=== PATIENT | female | born 1950 | race African-American/Black ===

== ENCOUNTER → 2017-01-21 | Outpatient (CLI) | payer OTHER ==
[~2017-01-21] MED LIST: AMIO200T PO; ATOR40TA28 PO; CHOL400C8 PO; DOCU250C91 PO; FOLI1 PO; FURO40I PO; ISOS60TA4 PO; METO100XL PO; OMEP20TA25 PO; POTA8TAB4 PO
== END | disposition home or self-care (01) ==
LOC: RADPV 09:40
PROVIDERS: ATTEND Internal Medicine Cardiovascular Disease
DX: R13.10 Dysphagia, unspecified (principal)
CPT/HCPCS: 74230; 92611

== ENCOUNTER 2017-09-07 08:06 | Emergency (ER) | payer OTHER ==
[~2017-09-07] VITALS: Ht 167.6 cm; Wt 104.5 kg
[2017-09-07] MEDS ORDERED: DIGO-44 PO (08:36)
[2017-09-07] MEDS ORDERED: ASPI-1182 PO (08:36)
[2017-09-07] MEDS ORDERED: RANO500T3 PO (08:36)
[2017-09-07] MEDS ORDERED: SPIR25 PO (08:36)
[2017-09-07 09:05] LABS: BASOPHILS % (AUTO) 0.6 % (0.0-2.0); EOSINOPHILS % (AUTO) 0.2 % (1.0-6.0); HEMATOCRIT 33.4 % (36-46); HEMOGLOBIN 10.9 g/dL (12.0-16.0); LYMPHOCYTES # (AUTO) 0.5 K/uL (1.0-4.8); LYMPHOCYTES % (AUTO) 5.3 % (22.0-44.0); MEAN CORPUSCULAR HGB CONC 32.7 G/dL (31.0-37.0); MEAN CORPUSCULAR VOLUME 89 fL (80-100); MONOCYTES # (AUTO) 0.6 K/uL (0.1-1.0); NEUTROPHILS # (AUTO) 8.4 K/uL (1.8-7.7); PLATELET COUNT (AUTO) 271 K/uL (150-450); RED BLOOD CELL COUNT(AUTO) 3.77 MIL/uL (4.00-5.20)
[2017-09-07 09:11] LABS: NEUTROPHILS % (AUTO) 87.9 % (40.0-70.0)
[2017-09-07 09:16] LABS: ANION GAP 7 mmol/L (8-16); CARBON DIOXIDE 28 mmol/L (22-29); CHLORIDE 103 mmol/L (98-107); CREATININE 1.05 mg/dL (0.60-1.30); GLOMERULAR FILTR. RATE CALC > 60 mL/min (>60); GLUCOSE,RANDOM 120 mg/dL (70-110); POTASSIUM 4.1 mmol/L (3.5-5.1); SODIUM SERUM 138 mmol/L (136-145); UREA NITROGEN, BLOOD 15 mg/dL (7-18)
[2017-09-07 09:22] LABS: ALANINE AMINOTRANSFERASE 27 U/L (12-78); ALBUMIN 3.7 g/dL (3.4-5.0); ALKALINE PHOSPHATASE 87 U/L (46-116); ASPARTATE AMINOTRANSFERASE 14 U/L (15-37); BILIRUBIN,TOTAL 0.4 mg/dL (0.1-1.0)
[2017-09-07] MEDS ORDERED: IPRATROPIUM BROMIDE 0.5 MG/2.5 ML NEB SOLUTION NEB ONE (10:00)
[2017-09-07] MEDS ORDERED: ALBUTEROL SULFATE 2.5 MG/0.5 ML NEB SOLUTION NEB ONE (10:00)
[2017-09-07 10:01] LABS: B-TYPE NATRIURETIC PEPTIDE 23 pg/mL (0-100)
[2017-09-07] MEDS ORDERED: DIGOXIN 125 MCG TABLET PO ONE ×2 (10:45→11:30)
[2017-09-07] MEDS ORDERED: ISOSORBIDE MONONITRATE 60 MG ER TABLET PO ONE (10:45)
[2017-09-07] MEDS ORDERED: METOPROLOL SUCCINATE 50 MG ER TABLET PO ONE (10:45)
[2017-09-07 12:03] VITALS: BP 130/67
== END 2017-09-07 12:28 | disposition home or self-care (01) ==
LOC: EMS 08:08
DX: J20.9 Acute bronchitis, unspecified (principal); I10 Essential (primary) hypertension; E78.00 Pure hypercholesterolemia, unspecified; K80.20 Calculus of gallbladder without cholecystitis without obstruction; Z79.899 Other long term (current) drug therapy; Z79.82 Long term (current) use of aspirin
CPT/HCPCS: 93005; 94640; 99285

== ENCOUNTER → 2017-12-24 | Outpatient (CLI) | payer OTHER ==
[~2017-12-24] VITALS: Ht 172.7 cm; Wt 92.8 kg
[~2017-12-24] MED LIST changes: -AMIO200T PO; +ASPI-1182 PO; -CHOL400C8 PO; +DIGO-44 PO; -FURO40I PO; +RANO500T3 PO; +SPIR25 PO
[2017-12-24 10:57] VITALS: BP 119/74
== END | disposition home or self-care (01) ==
LOC: SRCNTR 10:48
PROVIDERS: ATTEND Internal Medicine Clinical Cardiac Electrophysiology
DX: Z45.02 Encounter for adjustment and management of automatic implantable cardiac defibrillator (principal); I25.10 Atherosclerotic heart disease of native coronary artery without angina pectoris; E78.00 Pure hypercholesterolemia, unspecified; I11.0 Hypertensive heart disease with heart failure; I50.9 Heart failure, unspecified
CPT/HCPCS: G0463